=== PATIENT | male | born 1975 | race Caucasian/White ===

== ENCOUNTER 2021-04-13 04:25 | Inpatient (IN) | payer OTHER, SELFPAY ==
[2021-04-13] VITALS (7 sets, daily range): BP systolic 134–157; BP diastolic 80–120; PULSE 61–94; RESP 16–22; TEMP 36.3–37; O2SAT 98–100; BMI 28.9
--- NOTE | ~2021-04-13 | CT_ITS ---
EXAMINATION: CT abdomen pelvis w con EXAM DATE: 04/13/2021 06:07 INDICATION: Right inguinal hernia. TECHNIQUE: Spiral CT of the abdomen and pelvis was performed following intravenous injection of 100 m L Omnipaque 350. Axial, coronal and sagittal images of the abdomen and pelvis were reviewed. The do se-length product (DLP) for this examination was 1717.63 mGy-cm. The exposure was tailored according to patient size (auto mA exposure control), and iterative reconstruction (ASIR) was used as addition al dose reduction technique. There is no prior study for comparison. FINDINGS: There is large right inguinal hernia containing a loop of ileum just proximal to the termin al ileum. Hernia extends down into the scrotum. There is edema to the herniated loop, but no pneumato sis. There is mild dilation of the small bowel proximal to this with feculent appearing stool indicat ing stasis. Small left inguinal fat-containing hernia. The liver, spleen, adrenal glands and pancreas are unremar kable. Gallbladder is unremarkable. No biliary obstruction. Portal and splenic veins are patent. Kidneys enhance symmetrically. There is no hydronephrosis. The prostate is unremarkable. The blad jamila is unremarkable. There is no retroperitoneal or pelvic lymphadenopathy. There is mild scattere d arteriosclerotic disease. There are no findings to suggest appendicitis. The stomach and small bowel are unremarkable. There is expected amount of colonic stool. No free intraperitoneal gas. The heart is normal in size. T here are no pericardial or pleural effusions. The lung bases are unremarkable. The bones are unrema rkable. IMPRESSION: Large right inguinal hernia containing edematous ileal loop and causing mild proximal sma ll bowel dilation, fecal stasis. At least partially obstructing. Reviewed, dictated and finalized at location A. IMPRESSION: Large right inguinal hernia containing edematous ileal loop and cau sing mild proximal small bowel dilation, fecal stasis. At least partially obstr ucting.
--- NOTE | 2021-04-13 05:11 | ED.ABDPAIN ---
HPI - Abdominal Pain General Chief Complaint: Urogenital-Male <Mary Jo Youngblood MD - Last Filed: 04/13/21 07:09> Stated Complaint: right groin hernia won't go back in <Mary Jo Youngblood MD - Last Filed: 04/13/21 07:09> Time Seen by Provider: 04/13/21 05:05 <Mary Jo Youngblood MD - Last Filed: 04/13/21 07:09> Source: patient <Mary Jo Youngblood MD - Last Filed: 04/13/21 07:09> Mode of arrival: ambulatory <Mary Jo Youngblood MD - Last Filed: 04/13/21 07:09> Limitations: no limitations <Mary Jo Youngblood MD - Last Filed: 04/13/21 07:09> History of Present Illness HPI narrative: This is a 46 year old male who presents for evaluation of right inguinal hernia pain. He states he has had a right inguinal hernia for 90 days. He was evaluated for his hernia at [facility] ED 2 days ago, and he states it was reducible at that time. Tonight he states he sneezed, and he has been unable to reduce his hernia. He is having severe pain with nausea. He states his last BM was tonight. He has not been seen by a surgeon for his pain yet. <Mary Jo Youngblood MD - Last Filed: 04/13/21 07:09> Related Data Allergies/Adverse Reactions: Allergies Allergy/AdvReac Type Severity Reaction Status Date / Time Penicillins Allergy Unknown Rash Verified 04/13/21 04:26 <Mary Jo Youngblood MD - Last Filed: 04/13/21 07:09> Review of Systems Review of Systems: All systems reviewed & are unremarkable except as noted in HPI and below <Mary Jo Youngblood MD - Last Filed: 04/13/21 07:09> [facility] Past Medical History Medical History: Medical History (Updated 04/13/21 @ 07:08 by Mary Jo Youngblood MD) Hypertension <Mary Jo Youngblood MD - Last Filed: 04/13/21 07:09> Surgical History Surgical History: Surgical History (Updated 04/13/21 @ 06:22 by Mary Jo Youngblood MD) No pertinent past surgical history <Mary Jo Youngblood MD - Last Filed: 04/13/21 07:09> Social History Social History: Social History (Updated 04/13/21 @ 06:22 by Mary Jo Youngblood MD) Smoking packs per day: 1 Smoking cigarettes per day: 20.0 Smoking status: Current every day smoker Gender identity (if verbalized by the patient): Male <Mary Jo Youngblood MD - Last Filed: 04/13/21 07:09> Exam Const: General: alert <Mary Jo Youngblood MD - Last Filed: 04/13/21 07:09> Orientation/consciousness: patient oriented x3 <Mary Jo Youngblood MD - Last Filed: 04/13/21 07:09> Other: patient is moderate pain <Mary Jo Youngblood MD - Last Filed: 04/13/21 07:09> Eyes: EOM: EOMs intact bilaterally <Mary Jo Youngblood MD - Last Filed: 04/13/21 07:09> Resp: Effort & Inspection: normal respiratory effort and no retractions <Mary Jo Youngblood MD - Last Filed: 04/13/21 07:09> Auscultation: clear to auscultation bilaterally <Mary Jo Youngblood MD - Last Filed: 04/13/21 07:09> Cardio: Rate: regular rate <Mary Jo Youngblood MD - Last Filed: 04/13/21 07:09> Rhythm: regular rhythm <Mary Jo Youngblood MD - Last Filed: 04/13/21 07:09> Heart sounds: no murmurs <Mary Jo Youngblood MD - Last Filed: 04/13/21 07:09> GI: Inspection: distended <Mary Jo Youngblood MD - Last Filed: 04/13/21 07:09> GI Palp: Yes Soft to palpation, Yes Tenderness to palpation present (GI), Yes Guarding due to palpation present (GI) and Yes Hernia present (large right inginal hernia, unable to reduce) <Mary Jo Youngblood MD - Last Filed: 04/13/21 07:09> Auscultation: Hypoactive bowel sounds present <Mary Jo Youngblood MD - Last Filed: 04/13/21 07:09> Skin: General skin exam: normal color <Mary Jo Youngblood MD - Last Filed: 04/13/21 07:09> Rashes: no rashes <Mary Jo Youngblood MD - Last Filed: 04/13/21 07:09> Neuro: General: patient oriented x3, moves all extremities and CN's II-XI intact bilaterally <Mary Jo Youngblood MD - Last Filed: 04/13/21 07:09> Psych: Mental Status: mental status grossly normal <Mary Jo Youngblood MD - Last Filed: 04/13/21 07:09>
[2021-04-13] MEDS: HYDROmorphone HCL INJ (*CRX) 1 MG/ML SYR IV PUSH ×2 (05:17→07:18)
[2021-04-13] MEDS: SODIUM CHLORIDE 0.9% IV 1,000 ML 999 ML IV CONT (05:17)
[2021-04-13 05:31] LABS: Basophils Percent Auto 0.4 % (0.2-1.2); Eosinophils Absolute Auto 0.1 K/mm3 (0-0.3); Eosinophils Percent Auto 0.8 % (0-4.4); Hematocrit 42.2 % (42.0-52.0); Hemoglobin 14.5 g/dL (14.0-18.0); Immature Granulocyte Absolute 0.05 K/mm3 (0.00-0.031); Immature Granulocyte Percent A 0.5 % (0-0.5); Lymphocytes Absolute Auto 1.51 K/mm3 (0.9-3.2); Lymphocytes Percent Auto 13.8 % (18.3-44.2); Mean Corpuscular HGB Conc 34.4 g/dl (32-36); Mean Corpuscular Hemoglobin 32.5 pg (26-34); Mean Corpuscular Volume 94.6 fl (80-100); Mean Platelet Volume 9.1 fl (7.4-10.4); Monocytes Absolute Auto 0.7 K/mm3 (0.1-0.6); Monocytes Percent Auto 6.3 % (2.6-8.5); Neutrophils Absolute Auto 8.6 K/mm3 (1.3-6.7); Neutrophils Percent Auto 78.2 % (45.5-73.1); Platelet Count Result 267 k/mm3 (150-375); Red Blood Count 4.46 M/mm3 (4.6-6.20); Red Cell Distribution Width 13.6 % (11.5-14.5)
[2021-04-13 05:41] LABS: Alanine Aminotransferase 32 U/L (4-50); Albumin Level 4.4 g/dL (3.5-5.1); Alkaline Phosphatase 77 U/L (38-126); Anion Gap 11 mmol/L (8-16); Aspartate Amino Transferase 30 U/L (17-59); Bilirubin,Total 0.6 mg/dL (0.2-1.3); Blood Urea Nitrogen 18 mg/dL (9-20); Calcium 9.6 mg/dL (8.4-10.2); Carbon Dioxide 26 mmol/L (22-30); Chloride 106 mmol/L (98-107); Estimated CRCL calculation 60 ml/min; Estimated Glomerular Filt Rate 59; Glucose 100 mg/dL (75-110); Lipase 61 U/L (23-300); Potassium 4.3 mmol/L (3.4-5.0); Sodium 143 mmol/L (137-145)
--- NOTE | 2021-04-13 05:45 | PC.NURSE ---
Pt attempted to give urine sample at this time. Unsuccessful. Urinal placed at bedside.
[2021-04-13 06:41] LABS: Add Urine Microscopic? YES; Amorphous Sediment Urine Moderate; Appearance Urine Cloudy (Clear); Bacteria Urine Trace /hpf; Bilirubin Urine Negative (Negative); Blood Urine Negative (Negative); Color Urine Yellow (Yellow); Glucose Urine UA Negative (Negative); Ketones Urine Negative (Negative); Leukocyte Esterase Ur Negative LEU/UL (Negative); Mucus Urine Rare /lpf; Nitrate Urine Negative (Negative); Protein Urine 1+ mg/dL (Negative); Specific Grav Ur 1.028 (1.001-1.035); Urobilinogen Urine Negative mg/dL (<2.0)
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
--- NOTE | 2021-04-13 08:52 | WPDANESEPPF ---
Anes - Initial Pre Proc Eval Procedure: Operation Date: 04/14/21 09:30 Proposed Procedures p Open Repair Of Right Inguinal Hernia With Mesh - Elmer Fuller MD Date/Time: 04/13/21 08:52 Surgeon: Elmer Fuller MD Pre Op Diagnosis: incarerated right inguinal hernia Patient Data Age: 46 Gender: M Height: 1.73 m Weight: 86.3 kg Last Vital Signs Temp 36.5 C 04/13/21 04:36 Pulse 94 04/13/21 06:33 Resp 18 04/13/21 06:33 BP 143/80 H 04/13/21 06:33 Pulse Ox 100 04/13/21 06:33 Allergies Allergy/AdvReac Type Severity Reaction Status Date / Time Penicillins Allergy Unknown Rash Verified 04/14/21 08:53 Home Medications Medication Instructions Recorded Confirmed Type No Home Medications 04/14/21 04/14/21 History Laboratory Tests 04/13/21 04/13/21 04/13/21 05:23 05:23 06:20 WBC 11.0 K/mm3 H K/mm3 (4.5-10.0) RBC 4.46 M/mm3 L M/mm3 (4.6-6.20) Hgb 14.5 g/dL g/dL (14.0-18.0) Hct 42.2 % % (42.0-52.0) MCV 94.6 fl fl (80-100) MCH 32.5 pg pg (26-34) MCHC 34.4 g/dl g/dl (32-36) RDW 13.6 % % (11.5-14.5) Plt Count 267 k/mm3 k/mm3 (150-375) MPV 9.1 fl fl (7.4-10.4) Immature Gran % (Auto) 0.5 % % (0-0.5) Neut % (Auto) 78.2 % H % (45.5-73.1) Lymph % (Auto) 13.8 % L % (18.3-44.2) [place] % (Auto) 6.3 % % (2.6-8.5) Eos % (Auto) 0.8 % % (0-4.4) Baso % (Auto) 0.4 % % (0.2-1.2) Lymph # (Auto) 1.51 K/mm3 K/mm3 (0.9-3.2) [place] # (Auto) 0.7 K/mm3 H K/mm3 (0.1-0.6) Eos # (Auto) 0.1 K/mm3 K/mm3 (0-0.3) Baso # (Auto) 0.0 K/mm3 K/mm3 (0.0-0.1) Abs Immat Gran (auto) 0.05 K/mm3 H K/mm3 (0.00-0.031) Absolute Neuts (auto) 8.6 K/mm3 H K/mm3 (1.3-6.7) Absolute Nucleated RBC 0.0 K/mm3 K/mm3 (0.0-0.012) Nucleated RBC % 0.0 % % (0.0-0.2) Sodium 143 mmol/L mmol/L (137-145) Potassium 4.3 mmol/L mmol/L (3.4-5.0) Chloride 106 mmol/L mmol/L (98-107) Carbon Dioxide 26 mmol/L mmol/L (22-30) Anion Gap 11 mmol/L mmol/L (8-16) BUN 18 mg/dL mg/dL (9-20) Creatinine 1.30 mg/dL mg/dL (0.7-1.3) Estim Creat Clear Calc 60 ml/min ml/min Estimated GFR 59 (59 - ) Glucose 100 mg/dL mg/dL (75-110) Calcium 9.6 mg/dL mg/dL (8.4-10.2) Total Bilirubin 0.6 mg/dL mg/dL (0.2-1.3) AST 30 U/L U/L (17-59) ALT 32 U/L U/L (4-50) Alkaline Phosphatase 77 U/L U/L (38-126) Total Protein 7.0 g/dL g/dL (6.3-8.2) Albumin 4.4 g/dL g/dL (3.5-5.1) Lipase 61 U/L U/L (23-300) Urine Color Yellow (Yellow) Urine Appearance Cloudy H (Clear) Urine pH 8.0 (5.0-9.0) Ur Specific [place] 1.028 (1.001-1.035) Urine Protein 1+ mg/dL H mg/dL (Negative) Urine Glucose (UA) Negative mg/dL mg/dL (Negative) Urine Ketones Negative mg/dL mg/dL (Negative) Ur Blood (Man) Negative (Negative) Urine Nitrate Negative (Negative) Urine Bilirubin Negative (Negative) Urine Urobilinogen Negative mg/dL mg/dL (<2.0) Leukocyte Esterase Rfl Negative KEVIN/UL KEVIN/UL (Negative) Amorphous Sediment Moderate H (None) Urine Bacteria Trace /hpf /hpf Urine Mucus Rare /lpf /lpf Patient hx anesthesia problems: none Family hx anesthesia problems: none PMFSH Past Medical History Medical History Hypertension Overweight (BMI 25.0-29.9) (Unknown) Surgical History Surgical History No pertinent past surgical history Fam
[2021-04-13] MEDS: SODIUM CHLORIDE 0.9% IV 1,000 ML 75 ML IV CONT ×2 (09:47→20:52)
--- NOTE | 2021-04-13 09:57 | ADMGEN ---
This patient, Suhas Fontaine, was admitted to [facility] Surg Room 324-01. Patient/family oriented to hospital policies and general routines including ID bracelet, bed and alarms, visiting hours, pain management, procedures, bathroom and other care routines, personal items, smoking policy, room service/diet, and visiting hours. Information on how to activate the Rapid Response Team has been discussed. Patient/Family are encouraged to report perceived risks to care and to ask questions if they do not understand what they are told or what they should do.
[2021-04-13] MEDS: MORPHINE SULFATE (*CRX) 4 MG/ML INJ IV PUSH ×3 (10:50→20:51)
[2021-04-13] MEDS: lisinopriL 5 MG TABLET PO (11:05)
[2021-04-13] MEDS: polyethylene glycoL 3350 17 GM POWD.PACK PO (17:25)
[2021-04-13] MEDS: NICOTINE (*PBKC) 14 MG PATCH 1 PATCH TRANSDERM (19:02)
[2021-04-14] VITALS (17 sets, daily range): BP systolic 117–143; BP diastolic 76–94; PULSE 55–87; RESP 12–20; TEMP 36.1–36.8; O2SAT 96–100
[2021-04-14] MEDS: MORPHINE SULFATE (*CRX) 4 MG/ML INJ IV PUSH ×4 (04:30→19:42)
[2021-04-14 06:05] LABS: Basophils Percent Auto 0.4 % (0.2-1.2); Eosinophils Absolute Auto 0.1 K/mm3 (0-0.3); Eosinophils Percent Auto 2.1 % (0-4.4); Hematocrit 37.8 % (42.0-52.0); Hemoglobin 12.8 g/dL (14.0-18.0); Immature Granulocyte Absolute 0.02 K/mm3 (0.00-0.031); Immature Granulocyte Percent A 0.3 % (0-0.5); Lymphocytes Percent Auto 20.9 % (18.3-44.2); Mean Corpuscular HGB Conc 33.9 g/dl (32-36); Mean Corpuscular Hemoglobin 32.5 pg (26-34); Mean Corpuscular Volume 95.9 fl (80-100); Monocytes Absolute Auto 0.5 K/mm3 (0.1-0.6); Monocytes Percent Auto 6.9 % (2.6-8.5); Neutrophils Absolute Auto 4.7 K/mm3 (1.3-6.7); Neutrophils Percent Auto 69.4 % (45.5-73.1); Platelet Count Result 203 k/mm3 (150-375); Red Blood Count 3.94 M/mm3 (4.6-6.20); Red Cell Distribution Width 13.6 % (11.5-14.5); White Blood Count 6.7 K/mm3 (4.5-10.0)
[2021-04-14 06:10] LABS: Anion Gap 5 mmol/L (8-16); Blood Urea Nitrogen 11 mg/dL (9-20); Calcium 8.1 mg/dL (8.4-10.2); Carbon Dioxide 24 mmol/L (22-30); Chloride 107 mmol/L (98-107); Estimated CRCL calculation 77 ml/min; Estimated Glomerular Filt Rate > 60; Glucose 101 mg/dL (75-110); Potassium 4.1 mmol/L (3.4-5.0); Sodium 136 mmol/L (137-145)
[2021-04-14] MEDS: lisinopriL 5 MG TABLET PO (08:11)
[2021-04-14] MEDS: LACTATED RINGERS 1,000 ML 30 ML IV CONT ×2 (09:00→13:04)
--- NOTE | 2021-04-14 09:01 | WPDHPUPDATE1 ---
History and Physical Update Update Date/Time: 04/14/21 09:01 History and Physical has been reviewed, including an updated exam of the patient. There are NO changes in the patient's condition. Risks, benefits, and alternatives have been discussed and questions answered. Patient agrees to proceed with procedure.
[2021-04-14] MEDS: ceFAZolin 2 GM/D5W 50 ML 2 GM/50 ML BAG IVPB (10:03)
[2021-04-14] MEDS: BUPIVACAINE HCL 0.5% PF 30 ML VIAL INFILTRATE (12:55)
[2021-04-14] MEDS: HYDROmorphone HCL INJ (*CRX) 1 MG/ML SYR 0.25 MG IV PUSH ×7 (13:20→13:59)
[2021-04-14] MEDS: HYDROcodone/acetaminophen (*CRX) 7.5-325 MG TABLET 1 TAB PO ×2 (15:37→22:42)
[2021-04-14] MEDS: NICOTINE (*PBKC) 14 MG PATCH 1 PATCH TRANSDERM (15:39)
--- NOTE | 2021-04-14 16:31 | W.PM.PROC2 ---
Procedure Note - Detailed Date of Procedure 04/14/21 Pre-op Diagnosis Incarerated right inguinal hernia Post-op Diagnosis other (1. Incarcerated direct right inguinal hernia) Procedure Performed Open inguinal hernia repair with mesh Surgeon Elmer Fuller MD Chief Passenger Ship Steward/Stewardess Yariel CARTWRIGHT, OR [facility] assist Anesthesia general Indications Patient presented yesterday to the ER with an incarcerated inguinal hernia. It was able to be reduced in the ER after placed the patient Trendelenburg position and getting some pain medication on board. He was kept overnight and made NPO at midnight. I recommended to him that we go ahead and do the repair now in order prevent future episodes of incarceration that may not be able to be reduced which would lead to urgent or emergent hernia repair which may not be able to be corrected with mesh due to infection. Right now I believe we should be able to use mesh which will give him the best chance of good long-term result. Findings A very large wide direct hernia with edematous cord structures. Description of Procedure The patient was placed in the supine position on the operating room table. After induction of adequate general endotracheal by [facility] Anesthesia staff, we carefully prepped the entire abdomen and scrotum with chlorhexidine. One sterile towel was placed underneath the scrotum. Four towels were placed around the right lower quadrant. Following this, a time-out was performed with the surgical team and the patient's surgical procedure and site was confirmed. We then carefully outlined a curvilinear incision in the right groin area and a curvilinear incision was made after introducing a mixture of local anesthetic, using 0.5% Marcaine with epinephrine and 1% Xylocaine plain as both an ilioinguinal nerve block and at the incision site with a 25 gauge needle. Following this, I carefully made the incision, and carried it down through the subcutaneous tissue. Hudson's fascia was incised and then we identified the external oblique aponeurosis and the external ring. Following this, the same mixture of local anesthetic was infiltrated underneath the external oblique aponeurosis and this was split in the direction of it's fibers with a #15 blade initially and then using metzenbaum scissors. I then opened the external oblique through the external ring and incised this somewhat posteriorly and superiorly exposing the ilioinguinal nerve. This nerve was carefully preserved laterally and then I carefully and meticulously dissected out the cord structures at the level of the pubic tubercle. I then surrounded these structures at the level of pubic tubercle and placed a [place] drain around them. I then carefully dissected the hernia sac up and off of the cord tissues, and brought it up and out of the incision. We carefully dissected the layers and cremasteric tissues off the hernia sac and then eventually opened the hernia sac. Holding this up with 4 hemostats, I carefully dissected it off the cord structures, being careful to avoid injury to the Pampiniform plexus veins, the spermatic artery and the vas. Once the hernia sac was carefully dissected back to the level of the internal ring I continued to sort out what was cord structures and what was hernia sac. It appeared that I was dealing with a large direct pseudo sac. Most of this was then excised and I carefully preserved the thickened somewhat edematous cord structures. The right testicle did pull up into the groin but I was able to easily place a back into the scrotum. The internal ring was quite dilated as was the cord structures therefore I needed to make about a 2 cm defect in the mesh in order to not compress the cord structures. No bowel was ever seen.. Following this, we took care to recreate an appropriate inguinal canal. This was done by carefully dissecting from the internal ring down to the pubic bone, dissecting away any cremasteric tis
[2021-04-14] MEDS: ONDANSETRON INJ 4 MG/2 ML VIAL IV PUSH (17:07)
[2021-04-15] MEDS: MORPHINE SULFATE (*CRX) 4 MG/ML INJ IV PUSH (00:19)
[2021-04-15 03:51] VITALS: BP 118/79; PULSE 56; RESP 18; TEMP 36.6; O2SAT 96
[2021-04-15 06:46] LABS: Hematocrit 39.7 % (42.0-52.0); Hemoglobin 13.2 g/dL (14.0-18.0); Mean Corpuscular HGB Conc 33.2 g/dl (32-36); Mean Corpuscular Hemoglobin 32.3 pg (26-34); Mean Corpuscular Volume 97.1 fl (80-100); Mean Platelet Volume 9.4 fl (7.4-10.4); Platelet Count Result 228 k/mm3 (150-375); Red Blood Count 4.09 M/mm3 (4.6-6.20); Red Cell Distribution Width 13.4 % (11.5-14.5); White Blood Count 10.5 K/mm3 (4.5-10.0)
[2021-04-15 07:08] LABS: Anion Gap 7 mmol/L (8-16); Blood Urea Nitrogen 10 mg/dL (9-20); Calcium 8.5 mg/dL (8.4-10.2); Carbon Dioxide 26 mmol/L (22-30); Chloride 104 mmol/L (98-107); Estimated CRCL calculation 71 ml/min; Estimated Glomerular Filt Rate > 60; Glucose 111 mg/dL (75-110); Potassium 3.8 mmol/L (3.4-5.0); Sodium 137 mmol/L (137-145)
[2021-04-15 08:00] VITALS: BP 133/74; PULSE 64; RESP 18; TEMP 36.9; O2SAT 95
[2021-04-15] MEDS: HYDROcodone/acetaminophen (*CRX) 7.5-325 MG TABLET 1 TAB PO (08:11)
[2021-04-15] MEDS: ENOXAPARIN 40 MG/0.4 ML SYRINGE SUB-Q (08:14)
[2021-04-15] MEDS: lisinopriL 5 MG TABLET PO (08:14)
--- NOTE | 2021-04-15 08:30 | WPDANESPN ---
Anes - Prog Note Post-Op Date/Time: 04/15/21 08:30 Cardiovascular status: normal Respiratory status: normal Airway patency: baseline Mental status: baseline Post-Op hydration status: normal Vital Signs: Last Vital Signs Temp 36.9 C 04/15/21 08:00 Pulse 64 04/15/21 08:00 Resp 18 04/15/21 08:00 BP 133/74 04/15/21 08:00 Pulse Ox 95 04/15/21 08:00 Pain Score (VAS): none I/O: Intake & Output 04/14/21 04/15/21 04/15/21 23:59 07:59 15:59 Intake Total 1470 300 Output Total 500 600 Balance 970 -300 Laboratory Tests 04/15/21 06:10 04/15/21 06:10 04/14/21 04/15/21 04/15/21 05:44 06:10 06:10 WBC 10.5 H RBC 4.09 L Hgb 13.2 L Hct 39.7 L MCV 97.1 MCH 32.3 MCHC 33.2 RDW 13.4 Plt Count 228 MPV 9.4 Sodium 137 Potassium 3.8 Chloride 104 Carbon Dioxide 26 Anion Gap 7 L BUN 10 Creatinine 1.10 Estim Creat Clear Calc 71 Estimated GFR > 60 Glucose 111 H Calcium 8.5 Blood Type A Positive Antibody Screen Negative Post-procedural complaints: none Patient Feedback: Patient satisfied with anesthetic care.
--- NOTE | 2021-04-15 09:51 | PM.DS ---
DS: Admitting Diagnosis Admitting Diagnosis Admitting Diagnosis: 1. Status post incarcerated right inguinal hernia 2. Doing well status post open right inguinal hernia repair with mesh 3. Hypertension DS: Discharge Diagnosis Discharge Diagnosis (1) Incarcerated right inguinal hernia: Onset Date: ~04/13/21 Code(s): K40.30 - Unilateral inguinal hernia, with obstruction, without gangrene, not specified as recurrent Status: Acute Assessment and Plan: This was the main reason for the patient's admission. His hernia was able to be reduced in the emergency room. Subsequently we admitted him hydrated him and then the following day took him to surgery for a definitive repair on the right. He had an open right inguinal hernia repair and a very wide external inguinal ring with a large direct hernia. I excise some of the pseudo sac and reduced his hernia preperitoneal and then repaired it with a piece of mesh. He is doing well postop day 1. (2) Smoker: Onset Date: Unknown Code(s): F17.200 - Nicotine dependence, unspecified, uncomplicated Status: Acute Assessment and Plan: Patient's plan is to cut back to somewhere between 3 and 5 cigarettes per day. He will then discuss with his PCP next Sunday regarding plans for 0 full progress progress towards smoking cessation. (3) Overweight (BMI 25.0-29.9): Onset Date: Unknown Status: Acute Assessment and Plan: Discussed with patient importance of gradually losing some weight. This may be somewhat difficult for him on when he stop smoking as lot of people gain weight then. I would rather have him stay worries at or go down. If he could go down 20 lb we may be able to plan for elective repair of his known asymptomatic left inguinal hernia sometime later this fall. (4) Hypertension: Onset Date: Unknown Code(s): I10 - Essential (primary) hypertension Status: Acute Assessment and Plan: Patient had elevated blood pressures when admitted. However, he was in pain from his incarcerated hernia. He does state that he was on blood pressure medication in the past but has not had a primary care doctor recently. Therefore, he is planning to continue the 5 mg lisinopril that I started him on. The last 2 blood pressures are in the hospital have been pretty good. So will plan to give him 30 days of this. He has a virtual appointment with his new PCP out of [facility] in [place] and he will discuss is hypertension and smoking with that physician next Sunday. DS: Summary Hospital Course Reason for hospitalization: Incarcerated right inguinal hernia Hospital Course: Patient uneventful hospital course. He was brought in through the emergency room because of a incarcerated right inguinal hernia which was able be reduced after placing him in Trendelenburg and given him pain medicine. Because this was severely edematous and stuck out when I 1st saw him I thought he should have admission and subsequent repair for rather than outpatient treatment. Therefore, he was admitted overnight. We were able to do the surgery the following morning. Findings at surgery included a fairly large direct hernia with no bowel in it but with significant preperitoneal fat edema of the cord and a lipoma of the cord which was removed. Patient now has a Rt. sided open repair with mesh completed and is doing well postoperatively. Status at Discharge Cognitive/behavioral status at discharge: Back to normal Functional status at discharge: independent ambulation Overall status at discharge: patient is not back to baseline (Still moving slow but this is expected after his right inguinal hernia repair.) Time Spent with Patient Time attestation: Total time spent providing and/or coordinating discharge services: Time spent: Less than 30 minutes Specific discharge activities: Discussion of smoking cessation Discussion of treatment of hypertension which he should confirm w
--- NOTE | 2021-04-15 11:28 | PC.NURSE ---
Pt was discharged on this date. IV removed, and discharge instructions reviewed. Pt exhibited good understanding of discharge instructions. Recent BP written down for pt to follow up with his primary regarding BP meds. Pt assisted by wheelchair to the front door.
== END 2021-04-15 10:35 | disposition home or self-care (01) | DRG 228 ==
LOC: ANHED 07:57 → ANH3MEDSUR 08:43
PROVIDERS: General Practice; Admitting Provider Surgery; Emergency Provider Emergency Medicine; Visit Provider Surgery
PROC: 0YU50JZ Supplement Right Inguinal Region with Synthetic Substitute, Open Approach (ICD-10-PCS; principal; 2021-04-14 09:30)
DX: K40.30 Unilateral inguinal hernia, with obstruction, without gangrene, not specified as recurrent (principal); D17.79 Benign lipomatous neoplasm of other sites; F17.210 Nicotine dependence, cigarettes, uncomplicated; E66.3 Overweight; Z68.28 Body mass index [BMI] 28.0-28.9, adult; I10 Essential (primary) hypertension
CPT/HCPCS: 36415; 74177; 80048; 80053; 81001; 83690; 85025; 85027; 86850; 86900; 86901; 88300; 88304; 96361; 96374; 96376; 99285; A9270; C1781; G0379; J0131; J0330; J0690; J1100; J1170; J1650; J2250; J2270; J2405; J2704; J2710; J3010; J7030; J7120; Q9967

== ENCOUNTER 2021-04-15 19:41 | Emergency (ER) | payer OTHER, SELFPAY ==
--- NOTE | ~2021-04-15 | CT_ITS ---
EXAMINATION: CT abdomen pelvis w con DATE: 04/15/2021 21:56 INDICATION: Right inguinal and abdominal pain and swelling post surgery TECHNIQUE: Computed tomography (CT) of the abdomen and pelvis was performed with 100 mL Omnipaque-350 intravenous contrast. Automated exposure control and iterative reconstruction technique were employe d. The dose-length product was 1581.46 mGy-cm. COMPARISON: None FINDINGS: Band of discoid atelectasis/scarring with volume loss in the left lower lobe. Less severe discoid ate lectasis in the lingula and mild dependent atelectasis in the right lower lobe. Heart size is normal. No pericardial or pleural effusion. 1.8 cm region in segment IVb of the liver with somewhat geograph ic appearance appearing to extend towards a small region of decreased attenuation at the ligamentum t eres, the latter with typical location for hepatic steatosis. Gallbladder, spleen, pancreas, bilatera l adrenal glands and kidneys are normal. Bowels including the appendix are normal. Bladder is normal. Postoperative changes in the right inguinal region and right hemiscrotum with reported recent right i nguinal hernia mesh repair. There is is a small amount of gas and fluid including small amount of hig h attenuation likely blood in the right scrotum consistent with recent surgery. The bilateral testes appear relatively symmetric in size and attenuation. There is an approximately 9 mm diameter serpigin ous structure in the right hemiscrotum which could represent thickened edematous spermatic cord. This appears to L1-2 represent the epididymis. There is edema within the residual herniated fat. No recur rent herniation of bowel. IMPRESSION: 1. Postoperative change of recent right inguinal hernia repair with reduction of the previously herni ated bowel. There is some fluid likely including blood along with significant edema in the right luz scrotum along with a serpiginous structure likely representing a thickened edematous spermatic cord. 2. Indeterminate 1.8 cm lesion in segment IVb of the liver which could represent neoplasm either shira gn or malignant or focal hepatic steatosis. Would recommend further evaluation with follow-up pre and postcontrast MRI when clinically improved. Reviewed, dictated and finalized at location A. IMPRESSION: 1. Postoperative change of recent right inguinal hernia repair with reduction o f the previously herniated bowel. There is some fluid likely including blood al sis with significant edema in the right hemiscrotum along with a serpiginous st ructure likely representing a thickened edematous spermatic cord. 2. Indeterminate 1.8 cm lesion in segment IVb of the liver which could represen t neoplasm either benign or malignant or focal hepatic steatosis. Would recomme nd further evaluation with follow-up pre and postcontrast MRI when clinically i mproved.
[2021-04-15 19:46] VITALS: BP 101/59; PULSE 105; RESP 18; TEMP 36.7; O2SAT 95
[2021-04-15 21:36] LABS: Basophils Percent Auto 0.3 % (0.2-1.2); Eosinophils Percent Auto 0.1 % (0-4.4); Hematocrit 42.1 % (42.0-52.0); Hemoglobin 14.1 g/dL (14.0-18.0); Immature Granulocyte Absolute 0.03 K/mm3 (0.00-0.031); Immature Granulocyte Percent A 0.3 % (0-0.5); Lymphocytes Absolute Auto 0.99 K/mm3 (0.9-3.2); Lymphocytes Percent Auto 10.1 % (18.3-44.2); Mean Corpuscular HGB Conc 33.5 g/dl (32-36); Mean Corpuscular Volume 95.7 fl (80-100); Mean Platelet Volume 9.3 fl (7.4-10.4); Monocytes Absolute Auto 0.7 K/mm3 (0.1-0.6); Monocytes Percent Auto 6.8 % (2.6-8.5); Neutrophils Absolute Auto 8.1 K/mm3 (1.3-6.7); Neutrophils Percent Auto 82.4 % (45.5-73.1); Platelet Count Result 248 k/mm3 (150-375); Red Cell Distribution Width 13.5 % (11.5-14.5); White Blood Count 9.8 K/mm3 (4.5-10.0)
[2021-04-15] MEDS: SODIUM CHLORIDE 0.9% IV 1,000 ML 999 ML IV CONT (21:37)
[2021-04-15] MEDS: HYDROmorphone HCL INJ (*CRX) 1 MG/ML SYR IV PUSH ×2 (21:39→23:19)
[2021-04-15 21:46] LABS: Alanine Aminotransferase 31 U/L (4-50); Albumin Level 4.6 g/dL (3.5-5.1); Alkaline Phosphatase 69 U/L (38-126); Anion Gap 10 mmol/L (8-16); Aspartate Amino Transferase 26 U/L (17-59); Bilirubin,Total 0.9 mg/dL (0.2-1.3); Blood Urea Nitrogen 15 mg/dL (9-20); Calcium 9.5 mg/dL (8.4-10.2); Carbon Dioxide 27 mmol/L (22-30); Chloride 103 mmol/L (98-107); Estimated CRCL calculation 60 ml/min; Estimated Glomerular Filt Rate 59; Glucose 105 mg/dL (75-110); Lipase 39 U/L (23-300); Potassium 3.9 mmol/L (3.4-5.0); Sodium 140 mmol/L (137-145)
--- NOTE | 2021-04-15 22:22 | ED.GENADULT ---
HPI - General Adult General Chief complaint: Unspecified Stated complaint: s/p hernia surgery, abd pain Time Seen by Provider: 04/15/21 21:14 History of Present Illness HPI narrative: Patient 46-year-old gentleman who presents the emergency department with chief complaint of right inguinal pain. The patient reports that he was just discharged from the hospital today after a right inguinal hernia repair. The patient states that day he went home and was just doing no significant strenuous activity and noticed that he had swelling in the area where his previous hernia was. Patient states that the area is exquisitely painful more so than even just when it was immediately postoperative. Patient states it feels as though his hernia has reoccurred. Patient denies vomiting denies fever Related Data Home Medications Medication Instructions Recorded Confirmed No Home Medications 04/14/21 04/14/21 Allergies Allergy/AdvReac Type Severity Reaction Status Date / Time Penicillins Allergy Unknown Rash Verified 04/15/21 19:50 Review of Systems Review of Systems: Narrative: A 10 system review of systems was completed on the patient and is negative except for what is stated in the HPI. Nursing and ancillary documentation was reviewed. [facility] Past Medical History Medical History Hypertension Hypertension (Unknown) Overweight (BMI 25.0-29.9) (Unknown) Surgical History Surgical History No pertinent past surgical history Family History Family History Father Type 2 diabetes mellitus Social History Social History Smoking packs per day: 1 Smoking cigarettes per day: 20.0 Smoking status: Current every day smoker Tobacco type: cigarettes Alcohol intake: never Substance use: never Gender identity (if verbalized by the patient): Male Spiritual care concerns: No Exam Narrative: Exam Narrative: GENERAL: Well-appearing, well-nourished, and in no acute distress. HEAD: Normocephalic, atraumatic. EYES: PERRLA and EOMI. ENT: Nares clear, no rhinorrhea or epistaxis. Mucous membranes moist. NECK: Supple. CHEST: Clear to auscultation. No respiratory distress. HEART: Regular rate and rhythm. No murmur heard. Normal peripheral pulses. ABDOMEN: Soft, nontender, nondistended, normal active bowel sounds. There is swelling in the right inguinal region inferior to the incision line EXTREMITIES: Normal range of motion. No edema. SKIN: Warm, dry, no rash. NEURO: No focal deficits. Alert and oriented x3. PSYCH: Normal mood and affect. Course Vital Signs Vital signs: Vital Signs Temperature 36.7 C 04/15/21 19:46 Pulse Rate 105 H 04/15/21 19:46 Respiratory Rate 18 04/15/21 19:46 Blood Pressure 101/59 L 04/15/21 19:46 Pulse Oximetry 95 04/15/21 19:46 Temperature 36.7 C 04/15/21 19:46 Pulse Rate 83 04/15/21 23:49 Respiratory Rate 20 04/15/21 23:49 Blood Pressure 116/76 04/15/21 23:49 Pulse Oximetry 97 04/15/21 23:49 Medical Decision Making Vital Signs Vital Signs: Vital Signs Temperature 36.7 C 04/15/21 19:46 Pulse Rate 105 H 04/15/21 19:46 Respiratory Rate 18 04/15/21 19:46 Blood Pressure 101/59 L 04/15/21 19:46 Pulse Oximetry 95 04/15/21 19:46 Temperature 36.7 C 04/15/21 19:46 Pulse Rate 83 04/15/21 23:49 Respiratory Rate 20 04/15/21 23:49 Blood Pressure 116/76 04/15/21 23:49 Pulse Oximetry 97 04/15/21 23:49 Lab Data Result diagrams: 04/15/21 21:26 04/15/21 21:26 Labs: Lab Results 04/15/21 04/15/21 Range/Units 21:26 21:26 WBC 9.8 (4.5-10.0) K/mm3 RBC 4.40 L (4.6-6.20) M/mm3 Hgb 14.1 (14.0-18.0) g/dL Hct 42.1 (42.0-52.0) % MCV 95.7 (80-1
[2021-04-15 23:49] VITALS: BP 116/76; PULSE 83; RESP 20; O2SAT 97
[2021-04-16 01:01] VITALS: BP 112/74; PULSE 82; RESP 18; O2SAT 97
== END 2021-04-16 01:04 | disposition home or self-care (01) ==
PROVIDERS: Emergency Provider Emergency Medicine
DX: G89.18 Other acute postprocedural pain (principal); R10.31 Right lower quadrant pain; I10 Essential (primary) hypertension; E66.3 Overweight; Z68.28 Body mass index [BMI] 28.0-28.9, adult; F17.210 Nicotine dependence, cigarettes, uncomplicated
CPT/HCPCS: 36415; 74177; 80053; 83690; 85025; 96361; 96374; 96376; 99284; J1170; J7030; Q9967

== ENCOUNTER 2024-03-13 08:50 | Emergency (ER) | payer BC, SELFPAY ==
--- NOTE | ~2024-03-13 | XR_ITS ---
EXAMINATION: XR foot LT min 3V DATE: 03/13/2024 09:09 INDICATION: Left heel pain. TECHNIQUE: 4 views of left foot were obtained. COMPARISON: Left ankle radiographs 09/06/2016 FINDINGS: Bone alignment is normal. No fracture. Joint spaces are normal. There is an enthesophyte at plantar aspect of calcaneal tuberosity. IMPRESSION: 1. No fracture. Reviewed, dictated and finalized at location A. IMPRESSION: 1. No fracture.
[2024-03-13 08:54] VITALS: BP 147/98; PULSE 73; RESP 18; TEMP 36.2; O2SAT 100
--- NOTE | 2024-03-13 09:01 | ED.GENADULT ---
HPI - General Adult General Chief complaint: Extremity Injury, Lower Stated complaint: Left heel pain Time Seen by Provider: 03/13/24 08:52 History of Present Illness HPI narrative: Suhas Fontaine is a 48 y/o male who presents today with reports of left heel pain for 6 weeks, worse with standing, better with rest. Denies any known trauma/ he is wondering if there is something in his calloused heel. Related Data Allergies Allergy/AdvReac Type Severity Reaction Status Date / Time Penicillins Allergy Unknown Rash Verified 03/13/24 09:15 Review of Systems Review of Systems: All systems reviewed & are unremarkable except as noted in HPI and below PMFSH Past Medical History Medical History Hypertension Hypertension (Unknown) Overweight (BMI 25.0-29.9) (Unknown) Surgical History Surgical History No pertinent past surgical history Family History Family History Father Type 2 diabetes mellitus Social History Social History Smoking packs per day: 1 Smoking cigarettes per day: 20.0 Smoking status: Current every day smoker Tobacco type: cigarettes Alcohol intake: never Substance use: never Gender identity (if verbalized by the patient): Male Sexual Orientation (if Verbalized by the Patient): Straight or Heterosexual Spiritual care concerns: No Exam Narrative: GENERAL: Well-appearing, well-nourished, and in no acute distress. HEAD: Normocephalic, atraumatic. EYES: PERRLA and EOMI. ENT: Nares clear, no rhinorrhea or epistaxis. Mucous membranes moist. Oropharynx without tonsillar hypertrophy exudate or other lesions. Bilateral TMs pearly aparicio nonbulging NECK: Supple. No adenopathy or masses. No carotid bruits or JVD CHEST: Clear to auscultation. No respiratory distress. No wheezes rales or rhonchi HEART: Regular rate and rhythm. No murmur heard. Normal peripheral pulses. ABDOMEN: Soft, nontender, nondistended, normal active bowel sounds. EXTREMITIES: Normal range of motion. No edema. SKIN: Warm, dry, no rash. NEURO: No focal deficits. Alert and oriented x3. PSYCH: Normal mood and affect. Course Vital Signs Vital signs: Vital Signs Temperature 36.2 C L 03/13/24 08:54 Pulse Rate 73 03/13/24 08:54 Respiratory Rate 18 03/13/24 08:54 Blood Pressure 147/98 H 03/13/24 08:54 Pulse Oximetry 100 03/13/24 08:54 Oxygen Delivery Room Air 03/13/24 08:54 Temperature 36.2 C L 03/13/24 08:54 Pulse Rate 86 03/13/24 09:17 Respiratory Rate 15 03/13/24 09:17 Blood Pressure 138/103 H 03/13/24 09:17 Pulse Oximetry 100 03/13/24 09:17 Oxygen Delivery Room Air 03/13/24 08:54 Medical Decision Making MDM Narrative Medical decision making narrative: Patient explains he has pain to an area on his heel under the thick calloused area for about 6 weeks, worse with putting weight on it and improved with rest. On exam there is a flattened pale area in his calloused that is noted, it is not raised but painful to touch Concern for plantars wart/ foreign body splinter/ plantar fasciitis Discussed these concerns with pt and he states he does not want anything cut out today, he would like an x ray and follow up with a PCP to get it taken care of if it is a wart that needs to be cut out. Plan to check an XR and treat his pain Encouraged pt to do warm soaks at home and can lightly use a pumice stone to remove some of his callous to help remove the wart Will also refer him to a PCP since he does not have one. Patient agrees with this plan All questions answered Medical Records Medical records reviewed: Yes I reviewed the external patient's medical records. Vital Signs Vital Signs: Vital Signs Temperature 36.2 C L 03/13/24 08:54 Pulse Rate 73 03/13/24
[2024-03-13 09:17] VITALS: BP 138/103; PULSE 86; RESP 15; O2SAT 100
[2024-03-13] MEDS: ACETAMINOPHEN 500 MG TABLET 1000 MG PO (09:18)
[2024-03-13] MEDS: NAPROXEN 500 MG TABLET PO (09:19)
== END 2024-03-13 10:00 | disposition home or self-care (01) ==
LOC: ANHED 09:24
PROVIDERS: Emergency Provider Nurse Practitioner Family; Referring Provider Family Medicine
DX: M79.672 Pain in left foot (principal); L84 Corns and callosities; B07.0 Plantar wart; I10 Essential (primary) hypertension; E66.3 Overweight; Z68.25 Body mass index [BMI] 25.0-25.9, adult; F17.210 Nicotine dependence, cigarettes, uncomplicated
CPT/HCPCS: 73630; 99283; A9270